=== PATIENT | male | born 1985 | race African-American/Black ===

== ENCOUNTER 2020-07-25 12:58 | Emergency (ER) | payer MEDICAID, OTHER ==
[~2020-07-25] VITALS: Ht 162.6 cm; Wt 97.5 kg
[2020-07-25 13:08] VITALS: BP 141/94
[2020-07-25] MEDS ORDERED: IBUPROFEN 800 MG TAB PO ONE (15:00)
== END 2020-07-25 15:10 | disposition home or self-care (01) ==
LOC: ER 12:58
DX: K04.7 Periapical abscess without sinus (principal)

== ENCOUNTER 2020-08-22 14:14 | Emergency (ER) | payer MEDICAID ==
[~2020-08-22] VITALS: Ht 167.6 cm; Wt 109.3 kg
[2020-08-22 14:58] VITALS: BP 128/81
== END 2020-08-22 15:27 | disposition home or self-care (01) ==
LOC: ER 14:14
DX: K04.7 Periapical abscess without sinus (principal)